=== PATIENT | female | born 1970 | race Caucasian/White ===

== ENCOUNTER 2017-10-20 08:36 | Outpatient (CLI) | payer OTHER ==
[~2017-10-20 08:36] MED LIST: FLUT1AER INH; MAGN400C PO; NIAC500C12 PO
== END 2017-10-20 23:59 | disposition home or self-care (01) ==
LOC: RAD 08:36
PROVIDERS: ATTEND Internal Medicine
DX: J34.2 Deviated nasal septum (principal)
CPT/HCPCS: 70551

== ENCOUNTER 2018-03-28 08:08 | Outpatient (CLI) | payer OTHER ==
[2018-03-28 09:10] LABS: CLARITY,URINE CLEAR (Clear); COLOR,URINE YELLOW (Yellow); GLUCOSE, URINE NEGATIVE (Neg); KETONES,URINE NEGATIVE (Neg); LEUKOCYTE ESTERASE ,URINE NEGATIVE (Neg); NITRITES, URINE NEGATIVE (Neg); OCCULT BLOOD,URINE NEGATIVE (Neg); PH,URINE 5.5 (4.8-8.0); PROTEIN,URINE NEGATIVE (Neg); UROBILINOGEN,URINE 0.2 E.U/dL (0.2-1.0)
[2018-03-28 09:11] LABS: UA COLLECTION TYPE CLN CATCH MIDSTREAM
[2018-03-28 09:12] LABS: BASOPHILS % (AUTO) 0.5 % (0-1); EOSINOPHILS # (AUTO) 0.2 X10'3 (0-0.9); EOSINOPHILS % (AUTO) 2.3 % (0-6); HEMATOCRIT 44.5 % (35.0-45.0); HEMOGLOBIN 15.1 g/dl (12.0-16.0); LYMPHOCYTES # (AUTO) 1.5 X10'3 (1.1-4.8); LYMPHOCYTES % (AUTO) 16.9 % (21-51); MEAN CORPUSCULAR HEMOGLOBIN 30.4 PG (27.0-31.0); MEAN CORPUSCULAR HGB CONC 33.9 % (33.0-36.5); MEAN CORPUSCULAR VOLUME 89.7 FL (78-98); MEAN PLATELET VOLUME 10.3 FL (7.4-10.4); MONOCYTES # (AUTO) 0.5 X10'3 (0-0.9); MONOCYTES % (AUTO) 6.1 % (2-12); NEUTROPHILS # (AUTO) 6.5 X10'3 (1.8-7.7); NEUTROPHILS % (AUTO) 74.2 % (42-75); PLATELET COUNT 235 X10'3 (140-440); RED BLOOD COUNT 4.96 X10'6 (4.20-5.60); RED CELL DISTRIBUTION WIDTH 13.6 % (11.5-14.5); WHITE BLOOD COUNT 8.8 X10'3 (4.5-11.0)
[2018-03-28 09:38] LABS: ALANINE AMINOTRANSFERASE 21 U/L (12-78); ALBUMIN 3.7 G/DL (3.4-5.0); ALKALINE PHOSPHATASE 87 IU/L (46-116); ANION GAP 8 (8-16); ASPARTATE AMINO TRANSFERASE 15 U/L (10-37); BLOOD UREA NITROGEN 11 MG/DL (7-18); BUN/CREATININE RATIO 15.9 (6.6-38.0); CALCIUM 8.4 MG/DL (8.5-10.1); CHLORIDE 104 MMOL/L (99-107); CHOL/HDL RATIO 2.8 (0.00-4.99); CHOLESTEROL 185 MG/DL (0-200); CREATININE 0.69 MG/DL (0.40-0.90); GLUCOSE 93 MG/DL (70-104); HDL CHOLESTEROL 65 MG/DL (35-60); LDL CHOLESTEROL 115 MG/DL (50-100); POTASSIUM 4.1 MMOL/L (3.5-5.1); SODIUM 139 MMOL/L (135-145); TOTAL CARBON DIOXIDE 27.3 MMOL/L (24-32); TOTAL PROTEIN 7.5 G/DL (6.4-8.2); TRIGLYCERIDES 41 MG/DL (20-135); eGFR > 90 ML/MIN
== END 2018-03-28 23:59 | disposition home or self-care (01) ==
LOC: LAB 08:08
PROVIDERS: ATTEND Family Medicine
DX: Z00.01 Encounter for general adult medical examination with abnormal findings (principal); E04.1 Nontoxic single thyroid nodule; R53.83 Other fatigue; J45.909 Unspecified asthma, uncomplicated
CPT/HCPCS: 36415; 80053; 80061; 81003; 84439; 84443; 85025

== ENCOUNTER 2018-05-07 08:25 | Outpatient (CLI) | payer OTHER ==
[2018-05-07] MEDS ORDERED: BARIUM SULFATE 340 ML SUSP.RECON***PROCEDURE AREA ONLY**DONT ENTER PO ONE (09:08)
== END 2018-05-07 23:59 | disposition home or self-care (01) ==
LOC: RAD 08:25
PROVIDERS: ATTEND Otolaryngology
DX: E04.2 Nontoxic multinodular goiter (principal); R13.10 Dysphagia, unspecified; J45.909 Unspecified asthma, uncomplicated
CPT/HCPCS: 74220; 76536

== ENCOUNTER 2022-03-29 09:35 | Day surgery (SDC) | payer OTHER ==
[2022-03-24 14:09] LABS: BASOPHILS # (AUTO) 0.1 X10'3 (0-0.2); EOSINOPHILS # (AUTO) 0.2 X10'3 (0-0.9); EOSINOPHILS % (AUTO) 2.2 % (0-6); LYMPHOCYTES # (AUTO) 2.2 X10'3 (1.1-4.8); LYMPHOCYTES % (AUTO) 28.3 % (21-51); MEAN CORPUSCULAR HEMOGLOBIN 30.7 PG (27.0-31.0); MEAN CORPUSCULAR HGB CONC 34.8 g/dL (33.0-36.5); MEAN CORPUSCULAR VOLUME 88.2 FL (78-98); MEAN PLATELET VOLUME 9.4 FL (7.4-10.4); MONOCYTES # (AUTO) 0.7 X10'3 (0-0.9); MONOCYTES % (AUTO) 8.3 % (2-12); NEUTROPHILS # (AUTO) 4.7 X10'3 (1.8-7.7); NEUTROPHILS % (AUTO) 60.2 % (42-75); PRE OP HEMATOCRIT 42.4 % (35.0-45.0); PRE OP HEMOGLOBIN 14.7 g/dL (12.0-16.0); PRE OP PLATELET COUNT 249 X10'3 (140-440); RED CELL DISTRIBUTION WIDTH 13.4 % (11.5-14.5)
[2022-03-24 14:30] LABS: ALBUMIN 3.8 G/DL (3.4-5.0); ALKALINE PHOSPHATASE 100 IU/L (46-116); BLOOD UREA NITROGEN 13 MG/DL (7-18); BUN/CREATININE RATIO 16.9 (6.6-38.0); CALCIUM 8.3 MG/DL (8.5-10.1); CHLORIDE 105 MMOL/L (99-107); CREATININE 0.77 MG/DL (0.40-0.90); PRE OP ALT 33 U/L (30-65); PRE OP ANION GAP 6 (8-16); PRE OP AST 20 U/L (10-37); PRE OP BILIRUB, TOTAL 0.7 MG/DL (0.0-1.0); PRE OP GLUCOSE 103 MG/DL (70-104); PRE OP POTASSIUM 3.7 MMOL/L (3.4-5.1); PRE OP SODIUM 140 MMOL/L (135-145); TOTAL PROTEIN 7.5 G/DL (6.4-8.2); eGFR 79 ML/MIN
[2022-03-29] VITALS (8 sets, daily range): BP systolic 105–130; BP diastolic 67–88
[~2022-03-29] VITALS: Ht 170.2 cm; Wt 95.3 kg
[~2022-03-29 09:35] MED LIST changes: -FLUT1AER INH; -MAGN400C PO; +MULT-1085 PO; -NIAC500C12 PO; +ceFAZolin inj. 2,000 MG in dextrose 5%-water 100 ML IV ONE; +famotidine 20mg tablet PO ONE; +ringers solution, lacted 1,000 ML IV SCH
[2022-03-29] MEDS ORDERED: LIDOcaine 1% 30ml preserv. free vial ONE (10:38)
[2022-03-29] MEDS ORDERED: BUPIVAcaine/PF 2.5 mg/ml (0.25%) 30ml vial ONE (10:39)
[2022-03-29] MEDS ORDERED: fentaNYL /PF 50mcg/ml 5ml ampule ONE (10:45)
[2022-03-29] MEDS ORDERED: midazolam 1 mg/ML 2ml injection ONE (10:45)
[2022-03-29] MEDS ORDERED: ketorolac trometh. 30mg/ml inj. IV ONE (11:45)
[2022-03-29] MEDS ORDERED: ondansetron/PF 4mg/2ml inj IV PRN (11:45)
[2022-03-29] MEDS ORDERED: morphine 4 MG/ML inj SYRINge IV PRN (11:45)
[2022-03-29] MEDS ORDERED: acetaminophen 1,000mg/100ml IV 100 ML IV PRN (11:45)
[2022-03-29] MEDS ORDERED: hydrALAZINE 20mg/ml inj. IV PRN (11:45)
[2022-03-29] MEDS ORDERED: ringers solution, lacted 1,000 ML IV SCH (11:45)
[2022-03-29] MEDS ORDERED: labetalol 20mg/4ml (5mg/ml) syringe IV PRN (11:45)
[2022-03-29] MEDS ORDERED: proCHLORperazine 10 MG/2 ml inj IV PRN (11:45)
[2022-03-29] MEDS ORDERED: morphine 2 MG/ML inj. syringe IV PRN (11:45)
[2022-03-29] MEDS ORDERED: HYDROmorphone/PF 0.2 MG/ML SYRINGE IV PRN ×2 (11:45)
--- NOTE | 2022-03-29 12:20 | NUR ---
PT RESTING IN STRETCHER, LAM HUGGER GOWN TURNED ON FOR COMFORT PT DENIES COMPLAINTS AWAITING SURGEON
[2022-03-29] MEDS ORDERED: sevoflurane 250ml liquid IH ONE (12:41)
--- NOTE | 2022-03-29 12:42 | NUR ---
SURGEON AND CIRCULATING NURSE AT BEDSIDE, PT EXAMINED AND MARKED
[2022-03-29] MEDS ORDERED: dexamethasone sod phosphate 4mg/ml inj. ONE (13:00)
[2022-03-29] MEDS ORDERED: ondansetron/PF 4mg/2ml inj ONE (13:00)
[2022-03-29] MEDS ORDERED: rocuronium 10mg/ml inj IV ONE (13:00)
[2022-03-29] MEDS ORDERED: LIDOcaine 2% (20mg/ml) 5ml vial ONE (13:00)
[2022-03-29] MEDS ORDERED: propofol inj 20 ML IV ONE (13:00)
[2022-03-29] MEDS ORDERED: neostigmine methylsulfate 1 MG/ML 10ml vial ONE (13:29)
[2022-03-29] MEDS ORDERED: glycopyrrolate 0.2mg/ml inj ONE (13:29)
[2022-03-29] MEDS ORDERED: oxyCODONE/APAP 5-325mg tablet PO PRN (13:35)
--- NOTE | 2022-03-29 13:39 | NUR ---
Received from OR via , accompanied by Anesthesiologist DELROY AND OR NURSE report given by Anesthesiolgist. PT DROWSY BUT RESPONDS TO VERBAL COMMANDS; DENIES PAIN OR DISCOMFORT. 20G IN RT AC. 02 MASK ON @ 8 LPM. VSS SINGLE LAP SITE WITH SKIN GLUE. Addendum: 03/29/22 at 1346 by Kristin López RN Amended: Links added.
--- NOTE | 2022-03-29 14:49 | NUR ---
ALL DISCHARGE CRITERIA HAS BEEN MET. VSS, PAIN AT A TOLERABLE LEVEL, VOIDING AND ABLE TO SAFELY AMBULATE AND TRANSFER SELF. IV TAKEN OUT WITHOUT ANY COMPLICATIONS. ALL DISCHARGE INSTRUCTIONS COVERED WITH PATIENT AND ALL QUESTIONS ANSWERED. PATIENT TAKEN OUT VIA WHEELCHAIR TO PERSONAL VEHICLE WHERE FAMILY/FRIEND DROVE PATIENT HOME. Addendum: 03/29/22 at 1506 by Kristin López RN Amended: Links added.
== END 2022-03-29 14:49 | disposition home or self-care (01) ==
LOC: PAS 09:35
PROVIDERS: ATTEND Surgery
DX: K43.2 Incisional hernia without obstruction or gangrene (principal); Z79.899 Other long term (current) drug therapy; Z98.890 Other specified postprocedural states; Z88.2 Allergy status to sulfonamides; Z88.8 Allergy status to other drugs, medicaments and biological substances; Z91.040 Latex allergy status; Z90.710 Acquired absence of both cervix and uterus; Z90.49 Acquired absence of other specified parts of digestive tract
CPT/HCPCS: 36415; 49560; 80053; 82948; 85025; 87811; 93005; J0690; J1100; J2250; J2405; J2704; J2710; J3010; J3490; J7030; J7060; J7120; Z7506; Z7512; A4215; A4618; A7000

== ENCOUNTER 2023-03-31 11:14 | Day surgery (SDC) | payer OTHER ==
[~2023-03-31] VITALS: Ht 167.6 cm; Wt 95.2 kg
[~2023-03-31 11:14] MED LIST changes: -ceFAZolin inj. 2,000 MG in dextrose 5%-water 100 ML IV ONE; -famotidine 20mg tablet PO ONE; -ringers solution, lacted 1,000 ML IV SCH
[2023-03-31 11:25] VITALS: BP 149/82; PULSE 62; RESP 16; TEMP 98.1; O2SAT 97
[2023-03-31] MEDS ORDERED: CRAN450T4 PO (11:44)
[2023-03-31] MEDS ORDERED: ZINC50CA2 PO (11:44)
[2023-03-31] MEDS ORDERED: ASHW300C2 PO (11:44)
[2023-03-31 12:30] VITALS: BP 124/71; PULSE 61; RESP 16; O2SAT 97
[2023-03-31 12:45] VITALS: BP 109/74; PULSE 61; RESP 15; O2SAT 99
[2023-03-31 13:00] VITALS: BP 130/83; PULSE 69; RESP 16; O2SAT 96
== END 2023-03-31 13:10 | disposition home or self-care (01) ==
LOC: SSTAY O 11:14
PROVIDERS: ATTEND Radiology Diagnostic Radiology
DX: E04.2 Nontoxic multinodular goiter (principal); Z88.2 Allergy status to sulfonamides; Z91.040 Latex allergy status; Z88.8 Allergy status to other drugs, medicaments and biological substances; Z79.899 Other long term (current) drug therapy
CPT/HCPCS: 10005; 10006; 60100; 76942